=== PATIENT | female | born 1980 | race American Indian/Alaskan Native ===

== ENCOUNTER 2017-09-09 21:13 | Emergency (ER) | payer SELFPAY ==
[2017-09-09 23:10] LABS: Basophils % (Auto) 0.4 % (0.0-1.8); Eosinophils # (Auto) 0.1 K/mm3 (0.0-0.4); Eosinophils % (Auto) 0.8 % (0.0-4.3); Lymphocytes # (Auto) 2.2 K/mm3 (1.2-5.4); Lymphocytes % (Auto) 28.2 % (13.4-35.0); Mean Corpuscular HGB Conc 31 % (30-34); Mean Corpuscular Volume 71 fl (79-97); Monocytes # (Auto) 0.5 K/mm3 (0.0-0.8); Monocytes % (Auto) 5.7 % (0.0-7.3); Platelet Count 339 K/mm3 (140-440); Red Blood Count 4.49 M/mm3 (3.65-5.03)
[2017-09-09 23:18] LABS: Mean Corpuscular Hemoglobin 22 pg (28-32)
[2017-09-09 23:19] LABS: Red Cell Distribution Width 20.1 % (13.2-15.2)
[2017-09-09 23:32] LABS: Alanine Aminotransferase 10 units/L (7-56); Albumin 4.1 g/dL (3.9-5); BUN/Creatinine Ratio 25; Blood Urea Nitrogen 15 mg/dL (7-17); Calcium 9.1 mg/dL (8.4-10.2); Hemolysis Index 1
[2017-09-10 02:10] LABS: Bilirubin,Urine NEG (Negative); Blood,Urine LG (Negative); Color,Urine Red (Yellow); Mucus,Urine 3+ /HPF; Nitrite,Urine NEG (Negative); Urobilinogen,Urine < 2.0 mg/dL (<2.0)
[2017-09-10 02:25] LABS: RBC,Urine > 182.0 /HPF (0.0-6.0)
[2017-09-10] MEDS ORDERED: SUBLIMAZE IV ONE (02:42)
[2017-09-10] MEDS ORDERED: ZOFRAN IV ONE (02:42)
[2017-09-10] MEDS ORDERED: TORADOL IV ONE (02:43)
--- NOTE | 2017-09-10 02:52 | Emergency Department Report ---
HPI - General Chief Complaint: Abdominal Pain Time Seen by Provider: 09/10/17 02:31 - [facility] HPI: Room 3 The patient is a 36-year-old female presenting with a chief complaint of left flank pain. Patient states her symptoms began this morning with pain in the left flank associated with nausea and vomiting. Patient denies dysuria but states she's noticed blood in the urine which she attributed to her starting her menses yesterday. Patient denies any history of fever. The patient currently gives her pain a score of 7/10 Location: Left flank Duration: [See above] Quality: Pain Severity: 7/10 Modifying factors: [see above] Context: [see above] Mode of transportation: [not driving] ED Past Medical Hx - Past Medical History Previous Medical History?: Yes Additional medical history: DIVERTICULITIS, FIBROIDS - Surgical History Past Surgical History?: Yes Additional Surgical History: FIBROIDS - Family History Family history: no significant - Social History Smoking Status: Never Smoker Substance Use Type: None (denies illicit drug use) - Medications Home Medications: Home Medications Medication Instructions Recorded Confirmed Last Taken Type Ciprofloxacin HCl [Ciprofloxacin 500 mg PO BID #20 tablet 09/10/17 Unknown Rx TAB] HYDROcodone/APAP 5-325 [[place] 1 - 2 each PO Q6HR PRN #10 tablet 09/10/17 Unknown Rx 5/325] Ibuprofen [Motrin] 800 mg PO Q8HR PRN #20 tablet 09/10/17 Unknown Rx ED Review of Systems ROS: Stated complaint: ABD PAIN Other details as noted in HPI Constitutional: denies: fever Gastrointestinal: abdominal pain, nausea, vomiting Genitourinary: hematuria. denies: dysuria Musculoskeletal: back pain Physical Exam - Physical Exam Vital Signs: Vital Signs 09/09/17 22:13 Temperature 98.4 F Pulse Rate 66 Respiratory 16 Rate Blood Pressure 107/74 O2 Sat by Pulse 93 Oximetry Physical Exam: GENERAL: The patient is well-developed well-nourished female lying on stretcher not appearing to be in acute distress. [] HEENT: Normocephalic. Atraumatic. Extraocular motions are intact. Patient has moist mucous membranes. NECK: Supple. Trachea midline CHEST/LUNGS: Clear to auscultation. There is no respiratory distress noted. HEART/CARDIOVASCULAR: Regular. There is no tachycardia. There is no gallop rub or murmur. ABDOMEN: Abdomen is soft, with diffuse tenderness to palpation. Patient has normal bowel sounds. There is no abdominal distention. SKIN: There is no rash. There is no edema. There is no diaphoresis. NEURO: The patient is awake, alert, and oriented. The patient is cooperative. The patient has normal speech MUSCULOSKELETAL: There is left CVA tenderness. There is no evidence of acute injury. ED Course Vital Signs 09/09/17 22:13 Temperature 98.4 F Pulse Rate 66 Respiratory 16 Rate Blood Pressure 107/74 O2 Sat by Pulse 93 Oximetry ED Medical Decision Making - Lab Data Result diagrams: 09/09/17 22:53 09/09/17 22:53 Laboratory Tests 09/09/17 09/09/17 09/10/17 22:53 22:53 01:23 WBC 8.0 RBC 4.49 Hgb 10.0 L Hct 32.0 MCV 71 L MCH 22 L MCHC 31 RDW 20.1 H Plt Count 339 Lymph % (Auto) 28.2 [place] % (Auto) 5.7 Eos % (Auto) 0.8 Baso % (Auto) 0.4 Lymph # 2.2 [place] # 0.5 Eos # 0.1 Baso # 0.0 Seg Neutrophils % 64.9 Seg Neutrophils # 5.2 Sodium 139 Potassium 4.2 Chloride 102.3 Carbon Dioxide 23 Anion Gap 18 BUN 15 Creatinine 0.6 L Estimated GFR > 60 BUN/Creatinine Ratio 25 Glucose 97 Calcium 9.1 Total Bilirubin 0.20 AST 13 ALT 10 Alkaline Phosphatase 75 Total Protein 7.1 Albumin 4.1 Albumin/Globulin Ratio 1.4 Urine Color Red Urine Turbidity Hazy Urine pH 5.0 Ur Specific [place] 1.034 H Urine Protein 100 mg/dl Urine Glucose (UA) Neg Urine Ketones Neg Urine Blood Lg Urine Nitrite Neg Urine Bilirubin Neg Urine Urobilinogen < 2.0 Ur Leukocyte Esterase Tr Urine WBC (Auto) 58.0 H Urine RBC (Auto) > 182.0 Urine Mucus 3+ Urine HCG, Qual 09/10/17 02:44 WBC RBC Hgb Hct MCV MCH MCHC RDW Plt Count Lymph % (Auto) [place] % (Auto) Eos % (Auto) Baso % (Auto) Lymph # [place] # Eos # Baso # Seg Neutrophils % Seg Neutrophils # Sodium Potassium Chloride Carbon Dioxide Anion Gap BUN Creatinine Estimated GFR BUN/Creatinine Ratio Glucose Calcium Total Bilirubin AST ALT Alkaline Phosphatase Total Protein Albumin Albumin/Globulin Ratio Urine Color Urine Turbidity Urine pH Ur Specific [place] Urine Protein Urine Glucose (UA) Urine Ketones Urine Blood Urine Nitrite Urine Bilirubin Urine Urobilinogen Ur Leukocyte Esterase Urine WBC (Auto) Urine RBC (Auto) Urine Mucus Urine HCG, Qual Negative - Differential Diagnosis renal colic, pyelonephritis, diverticulitis Critical care attestation.: If time is entered above; I have spent that time in minutes in the direct care of this critically ill patient, excluding procedure time. ED Disposition Clinical Impression: Acute left flank pain, Pyelonephritis Disposition: TO HOME OR SELFCARE Is pt being admited?: No Does the pt Need Aspirin: No Condition: Stable Instructions: Abdominal Pain (ED) Additional Instructions: Return to the emergency department immediately should you develop worsening symptoms, fever, inability to tolerate food or liquid or any other concerns. Prescriptions: Ciprofloxacin HCl [Ciprofloxacin TAB] 500 mg PO BID #20 tablet HYDROcodone/APAP 5-325 [[place] 5/325] 1 - 2 each PO Q6HR PRN #10 tablet PRN Reason: Pain Ibuprofen [Motrin] 800 mg PO Q8HR PRN #20 tablet PRN Reason: Pain Referrals: ZAIDA REEVES MD [Primary Care Provider] - 3-5 Days Time of Disposition: 04:11
[2017-09-10 03:09] LABS: HCG Qualitative,Urine Negative (Negative)
--- NOTE | 2017-09-10 03:55 | Cat Scan Report ---
FINAL REPORT EXAM: CT ABDOMEN PELVIS WO CON HISTORY: left flank pain TECHNIQUE: Routine axial imaging was obtained of the abdomen and pelvis without oral or IV contrast. Sagittal and coronal reconstructions were reviewed. FINDINGS: The lung bases are clear. Pleural fluid is not seen. The liver, gallbladder, pancreas, spleen, and adrenal glands appear normal. The kidneys show no evidence of stones or hydronephrosis. The perinephric fat appears normal bilaterally. The bowel loops are normal in caliber and course. The appendix is not enlarged. There is no evidence of free fluid or adenopathy. In the pelvis the uterus is enlarged having a lobulated contour suggesting multiple fibroids. The bladder appears normal. There are no adnexal masses. The skeletal structures are well-maintained. IMPRESSION: No evidence of renal stones or obstructive uropathy. No acute process in the abdomen and pelvis. Fibroid uterus.
[2017-09-10] MEDS ORDERED: NACL 0.9% 1000 ML 1,000 ML IV ONE (04:05)
[2017-09-10] MEDS ORDERED: LEVAQUIN PO ONE (04:07)
[2017-09-10 06:34] VITALS: BP 98/59
== END 2017-09-10 07:00 | disposition home or self-care (01) ==
LOC: ED 21:13
DX: N12 Tubulo-interstitial nephritis, not specified as acute or chronic (principal)
CPT/HCPCS: 36415; 74176; 80053; 81001; 81025; 85025; 87086; 96374; 96375; 99284; J1885; J2405; J3010; J7030; 96361